=== PATIENT | female | born 1980 | race Caucasian/White ===

== ENCOUNTER 2021-01-05 07:43 | Emergency (ER) | payer BC, OTHER ==
--- NOTE | 2021-01-05 07:44 | ED.PDOC ---
History of Present Illness - General Stated Complaint: Difficulty breathing Time Seen by Provider: 01/05/21 07:44 - History of Present Illness Initial Comments: Patient had fever since December 24. A Covid test done at that time was negative. She was placed on a. Prescription of azithromycin at that time. 6 days ago patient was found to be Covid positive and was complaining of dyspnea. She was seen in emergency department and at discharge was given a Medrol Dosepak and amoxicillin. 3 days ago patient was seen in an urgent care for dyspnea with a negative chest x-ray. At home patient's oxygen was 93% and peak flows were 400. She used Ventolin inhaler. Patient complains of increased coughing and dyspnea. She also reports diarrhea, 4 liquid stools in the last 24 hours. Allergies/Adverse Reactions: Allergies Ciprofloxacin [From Cipro] Allergy (Verified 01/05/21 08:03) Home Medications: Ambulatory Orders predniSONE 5 mg PO DAILY 5 Days #5 tab 01/05/21 Review of Systems - Review of Systems Constitutional: States: fever EENTM: States: other - No loss of smell or taste Respiratory: States: see HPI Cardiology: States: no symptoms reported Gastrointestinal/Abdominal: States: diarrhea Musculoskeletal: States: no symptoms reported Skin: States: no symptoms reported Neurological: States: no symptoms reported Endocrine: States: no symptoms reported Hematologic/Lymphatic: States: no symptoms reported Family Medical History - Family History Mother Family History: No Known Physical Exam - Physical Exam General Appearance: Alert, Anxious, Comfortable Ears, Nose, Throat: normal ENT inspection, normal pharynx Neck: non-tender, full range of motion Respiratory: normal breath sounds - No wheezing or rales heard Cardiovascular/Chest: regular rate, rhythm, no edema Gastrointestinal/Abdominal: normal bowel sounds, non tender, soft Back Exam: normal inspection Extremity: normal range of motion, non-tender, no pedal edema, no calf tenderness Neurologic: 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 Ativan 1/2 mg and prednisone 5 mg given by mouth. 01/05/21 09:00 At time of discharge patient was calm and free of distress with SaO2 98 to 100% on room air. Medical decision makin-year-old female with history of asthma presenting with subjective dyspnea without objective respiratory distress or hypoxemia. Patient did not have any wheezing auscultated in her lungs. Patient has subjective complaints of COVID-19 illness. Patient is suitable for outpatient symptomatic management and will return if patient is persistently hypoxemic or has progressively worsening dyspnea. Departure - Departure Clinical Impression: Dyspnea without hypoxemia, Asthma, COVID-19, Anxiety Time of Disposition: 08:32 Disposition: Discharge to Home or Self Care Condition: Good Departure Forms: ED Discharge - Pt. Copy, Patient Portal Self Enrollment Instructions: Coronavirus Disease 2019 (COVID-19) (DC) Diet: resume usual diet Referrals: EZRA VALENZUELA [Primary Care Provider] - 1-2 Weeks Prescriptions: predniSONE 5 mg PO DAILY 5 Days #5 tab Home Medications: Ambulatory Orders predniSONE 5 mg PO DAILY 5 Days #5 tab 01/05/21 Comments: Illness may last for 2 weeks or more. Return if you have increasing shortness of breath or low oxygen, less than 90%.
[2021-01-05] MEDS ORDERED: LORazepam 0.5 MG TAB PO ONE ×2 (07:58)
[2021-01-05] MEDS ORDERED: predniSONE 5 MG TAB PO ONE (07:59)
[2021-01-05 08:19] VITALS: O2SAT 99
[2021-01-05 08:57] VITALS: BP 122/92; TEMP 98.5
== END 2021-01-05 08:45 | disposition home or self-care (01) ==
LOC: ER 07:43
DX: U07.1 COVID-19 (principal); J45.909 Unspecified asthma, uncomplicated; F41.9 Anxiety disorder, unspecified; Z88.1 Allergy status to other antibiotic agents